=== PATIENT | female | born 1995 | race Caucasian/White ===

== ENCOUNTER 2020-06-21 12:01 | Emergency (ER) | payer SELFPAY ==
[~2020-06-21] VITALS: Ht 157.5 cm; Wt 59.9 kg
[2020-06-21 12:24] VITALS: Ht 157.5 cm; Wt 59.9 kg
[2020-06-21 14:18] VITALS: BP 110/75
== END 2020-06-21 14:18 | disposition home or self-care (01) ==
LOC: ED 12:01
DX: S63.92XA Sprain of unspecified part of left wrist and hand, initial encounter (principal); X58.XXXA Exposure to other specified factors, initial encounter; Y93.89 Activity, other specified; Y92.89 Other specified places as the place of occurrence of the external cause; Y99.8 Other external cause status
CPT/HCPCS: J1885; Q0092